=== PATIENT | female | born 1960 | race Caucasian/White ===

== ENCOUNTER 2022-02-22 15:11 | Outpatient (CLI) | payer BC, SELFPAY ==
--- NOTE | 2022-02-22 15:30 | MM_ITS ---
WS: [id number] BILATERAL 3D TOMOSYNTHESIS DIGITAL SCREENING MAMMOGRAPHY WITH CAD CLINICAL INFORMATION: SCREENING HISTORY: Screening mammogram. No current complaints. COMPARISON: Outside examination 2017 TECHNIQUE: Bilateral CC and MLO views. FINDINGS: The breasts are composed of heterogeneous fibroglandular density tissue, which can limit the detectio n of small underlying mass lesions. No suspicious mass, asymmetry, calcifications, or architectural d istortion. No evidence of malignancy. Punctate and lucent center calcifications. MM/[place] [id number] IMPRESSION: BI-RADS: 2-Benign FOLLOW UP: 1 Year Follow-up Recommend return to annual screening mammography.
== END 2022-02-22 15:12 | disposition home or self-care (01) ==
PROVIDERS: Visit Provider Emergency Medicine
DX: Z12.31 Encounter for screening mammogram for malignant neoplasm of breast (principal)
CPT/HCPCS: 77063; 77067

== ENCOUNTER 2023-03-26 14:44 | Emergency (ER) | payer OTHER, SELFPAY ==
[2023-03-26 14:50] VITALS: BP 143/72; PULSE 85; RESP 16; TEMP 36.8; O2SAT 95; BMI 29.2
--- NOTE | 2023-03-26 14:56 | USR_ITS ---
PROCEDURE INFORMATION: Exam: US Duplex Left Lower Extremity Veins, Limited Exam date and time: 03/26/2023 3:23 PM Age: 63 years old Clinical indication: Pain; Leg, lower; Left TECHNIQUE: Imaging protocol: Real-time duplex ultrasound of the left extremity with 2-D bell scale, color Doppler flow and spectral waveform analysis including responses to compression and other maneuvers (when performed) with image documentation. Limited exam focused on the left lower extremity veins. COMPARISON: No relevant prior studies available. FINDINGS: Left deep veins: Unremarkable. The common femoral, femoral, proximal profunda femoral and popliteal veins are patent without thrombus. Normal Doppler waveforms. Normal compressibility and/or augmentation response. Superficial veins: Occlusive thrombus noted within the great saphenous vein below the knee. There is also occlusive thrombus in the varicose veins located in the anterior leg below the knee. Soft tissues: Unremarkable. US/[place] [id number] IMPRESSION: 1. Occlusive superficial thrombus within the great saphenous vein below the knee. There is also occlusive thrombus in the varicose veins located in the anterior leg below the knee. 2. No evidence of deep vein thrombosis.
--- NOTE | 2023-03-26 15:42 | ED_ITS ---
HPI - Extremity Problem General: Chief complaint: Extremity Injury, Lower Stated complaint: dr gutierrez, left leg pain Time Seen by Provider: 03/26/23 15:06 Source: patient Mode of arrival: ambulatory Limitations: no limitations History of Present Illness: 63-year-old female states she has been h aving pain in her left lower leg states she has varicose veins and they felt hard and swollen she denies any shortness of breath denies any fevers. Denies any injuries. Associated symptoms: Deny chest pain, fever(s) or rash Review of Systems Const: Denies: fever(s), chills, body aches or change in appetite ENMT: Denies: throat pain or dental pain Card: Denies: chest pain Resp: Denies: dyspnea GI: Denies: abdominal pain, nausea, vomiting or diarrhea Musc: Reports: extremity pain; Denies: neck pain or back pain Skin/Breast: Denies: rash Neuro: Denies: headache(s) Physical Exam Const: COMMON NORMALS: no acute distress, patient oriented x3 and healthy appearing HENMT: COMMON NORMALS: normocephalic and atraumatic HEAD & SCALP: normocephalic and atraumatic Neck/C-Spine: COMMON NORMALS: full ROM and supple Chest: COMMONS NORMALS: normal inspection of the chest Resp: COMMON NORMALS: normal respiratory effort Extremity: COMMON NORMALS: full ROM NARRATIVE EXTREMITY EXAM: Tenderness over left lower leg does have tenderness along her varicose vein Neuro: COMMON NORMALS: patient oriented x3, moves all extremities and no focal motor deficits Psych: COMMON NORMALS: mental status grossly normal, Normal thought process pr esent and cooperative THOUGHT PROCESS: Normal thought process present Skin: COMMON NORMALS: no rashes or lesions noted and no wounds GENERAL SKIN EXAM: no rashes or lesions noted Course Vital Signs: Vital signs: Vital Signs Temperature 98.3 F 03/26/23 14:50 Pulse Rate 85 03/26/23 14:50 Respiratory Rate 16 03/26/23 14:50 Blood Pressure 143/72 03/26/23 14:50 Pulse Oximetry 95 03/26/23 14:50 Oxygen Delivery Me thod Room Air 03/26/23 14:50 MDM - Extremity (Nontraumatic) Medical Decision Making Patient presents here with superficial thrombophlebitis ultrasound showed no signs of DVT she is to take ibuprofen along with warm compresses follow-up with her PCP and return if worsening. Medical Records I reviewed the patient's medical records. XR interpretation done by ED provider, pending radiology final review Discharge Plan Discharge Patient Disposition: Home Clinical Impression: Superficial thrombophlebitis Condition: Stable Prescriptions: No Action Unable to Assess Discharge Orders: Discharge ED (Routine); Ordered 03/26/23 Ordered By: Sherron Goyal Discharge Diet: Advance as tolerated Discharge Activity: Resume usual activity Patient Instructions: Superficial Thrombophlebitis (ED) Coding Level of Care Code ED Switchboard Inspector for Evon Yeboah
== END 2023-03-26 15:57 | disposition home or self-care (01) ==
PROVIDERS: Emergency Provider Emergency Medicine
DX: I80.02 Phlebitis and thrombophlebitis of superficial vessels of left lower extremity (principal)
CPT/HCPCS: 93971; 99284